=== PATIENT | female | born 1960 | race Caucasian/White ===

== ENCOUNTER 2020-03-03 11:53 | Emergency (ER) | payer BC ==
--- NOTE | 2020-03-03 12:39 | EDM.PDOC ---
ED HPI GENERAL MEDICAL PROBLEM - General Chief Complaint: Upper Extremity Injury/Pain Stated Complaint: PAIN IN L SHOULDERBLADE Time Seen by Provider: 03/03/20 12:15 Source of Information: Reports: Patient, Old Records History Limitations: Reports: No Limitations - History of Present Illness INITIAL COMMENTS - FREE TEXT/NARRATIVE: Bruna became aware of L posterior shoulder girdle pain about 2:30 am today, associated with BP 150's/70's. There was no palpititations, chest pain, SOB, cough, midline back pain, or pain radiating into the LUE. She took no meds for relief. Sxs have improved, but she felt the need for further medical evaluation in the ED. Her last medical check up was October 2019. Right Shoulder Pain Score (Numeric/FACES): 2 - Related Data Allergies Allergy/AdvReac Type Severity Reaction Status Date / Time Penicillins Allergy Hives Verified 03/03/20 12:25 Home Meds: Home Meds lisinopriL [Lisinopril] 5 mg PO DAILY 03/03/20 [History] Past Medical History HEENT History: Reports: Sinusitis, Other (See Below) Other HEENT History: allergy to environmental dusts Cardiovascular History: Reports: Hypertension Respiratory History: Reports: Pneumonia, Recurrent Gastrointestinal History: Reports: GERD, Other (See Below) Other Gastrointestinal History: "twisted bowel" Psychiatric History: Reports: None - Infectious Disease History Infectious Disease History: Reports: Chicken Pox, Measles - Past Surgical History HEENT Surgical History: Reports: LASIK Respiratory Surgical History: Reports: None Social & Family History - Family History Cardiac: Reports: [place], [place], Other (See Below) Other Cardiac Family History: uncle with cardiac history Endocrine/Metabolic: Reports: None Oncologic: Reports: Lung, Other (See Below) Other Oncologic Family History: brother of ca of lung - Caffeine Use Caffeine Use: Reports: Coffee Other Caffeine Use: 1 cup daily Review of Systems - Review of Systems Review Of Systems: Comprehensive ROS is negative, except as noted in HPI. ED EXAM, GENERAL - Physical Exam Exam: See Below Exam Limited By: No Limitations General Appearance: Alert, WD/WN, No Apparent Distress Eye Exam: Bilateral Eye: EOMI, Normal Inspection, PERRL Ears: Normal External Exam Nose: Normal Inspection Throat/Mouth: Normal Inspection, Normal Lips, Normal Oropharynx, Normal Voice, No Airway Compromise Head: Normocephalic Neck: Normal Inspection, Supple, Non-Tender Respiratory/Chest: No Respiratory Distress, Lungs Clear, Normal Breath Sounds, No Accessory Muscle Use, Chest Non-Tender Cardiovascular: Normal Peripheral Pulses, Regular Rate, Rhythm, No Edema, No Murmur GI/Abdominal: Normal Bowel Sounds, Soft, Non-Tender, No Organomegaly, No Distention, No Mass (Female) Exam: Deferred Rectal (Female) Exam: Deferred Back Exam: Normal Inspection, Other (limited tenderness of L periscapular mm, FROM; no rash) Extremities: Normal Inspection, Normal Range of Motion, Non-Tender Neurological: Alert, Oriented, CN II-XII Intact, Normal Cognition, No Motor/Sensory Deficits Psychiatric: Normal Affect Skin Exam: Warm, Dry, Intact, Normal Color, No Rash Lymphatic: No Adenopathy Course - Vital Signs Text/Narrative:: Following assessment, a screening ekg was performed, and noted NSR without acute changes. A chest x ray was neg. CBC, BMP, Troponin I and ddimer were all baseline or negative. Analgesic medication was offered, patient deferred. L upper back pain with shoulder girdle proximity. Last Recorded V/S: Last Vital Signs Temp 36.7 C 03/03/20 11:55 Pulse 73 03/03/20 11:55 Resp 15 03/03/20 11:55 BP 159/83 H 03/03/20 11:55 Pulse Ox 99 03/03/20 11:55 - Orders/Labs/Meds Orders: Active Orders 24 hr Category Date Time Status EKG Documentation Completion [RC] ASDIRECTED Care 03/03/20 12:32 Active Chest 1V Frontal [CR] Stat Exams 03/03/20 12:31 Taken CBC WITH AUTO DIFF [HEME] Stat Lab 03/03/20 12:45 Received EKG 12 Lead [EK] Routine Ther 03/03/20 12:31 Ordered Labs: Laboratory Tests 03/03/20 03/03/20 03/03/20 Range/Units 12:45 12:45 12:45 D-Dimer, Quantitative 0.37 (0.0-0.59) mg/LFEU Sodium 142 (135-145) mmol/L Potassium 3.6 (3.5-5.3) mmol/L Chloride 103 (100-110) mmol/L Carbon Dioxide 30 (21-32) mmol/L BUN 11 (7-18) mg/dL Creatinine 0.8 (0.55-1.02) mg/dL Est Cr Clr Drug Dosing 68.41 mL/min Estimated GFR (MDRD) > 60 (>60) BUN/Creatinine Ratio 13.8 (9-20) Glucose 95 (80-116) mg/dL Calcium 9.2 (8.6-10.2) mg/dL Troponin I 4.5 (4.0-60.3) pg/mL Departure - Departure Time of Disposition: 13:59 Disposition: Home, Self-Care 01 Condition: Fair Clinical Impression: Upper back pain on left side - Discharge Information *PRESCRIPTION DRUG MONITORING PROGRAM REVIEWED*: Not Applicable *COPY OF PRESCRIPTION DRUG MONITORING REPORT IN PATIENT GLENNY: Not Applicable Referrals: Sparkle Mata NP [Primary Care Provider] - Forms: ED Department Discharge Sepsis Event Note (ED) - Evaluation Sepsis Screening Result: No Definite Risk - Focused Exam Vital Signs: Vital Signs Temp Pulse Resp BP Pulse Ox 03/03/20 11:55 36.7 C 73 15 159/83 H 99 - Problem List & Annotations (1) Upper back pain on left side SNOMED Code(s): 891036560 Code(s): M54.9 - DORSALGIA, UNSPECIFIED Status: Acute Current Visit: Yes Annotation/Comment:: I suggested sxs cares, heat, massage, and ROM. - Problem List Review Problem List Initiated/Reviewed/Updated: Yes - My Orders Last 24 Hours: My Active Orders 03/03/20 12:31 Chest 1V Frontal [CR] Stat EKG 12 Lead [EK] Routine 03/03/20 12:32 EKG Documentation Completion [RC] ASDIRECTED 03/03/20 12:45 CBC WITH AUTO DIFF [HEME] Stat - Assessment/Plan Last 24 Hours: My Active Orders 03/03/20 12:31 Chest 1V Frontal [CR] Stat EKG 12 Lead [EK] Routine 03/03/20 12:32 EKG Documentation Completion [RC] ASDIRECTED 03/03/20 12:45 CBC WITH AUTO DIFF [HEME] Stat Plan: Follow up with PCP if sxs persist.
[2020-03-03 14:48] VITALS: BP 131/86; PULSE 92
== END 2020-03-03 14:30 | disposition home or self-care (01) ==
LOC: FB.ED 11:53
DX: M54.6 Pain in thoracic spine (principal); M25.512 Pain in left shoulder; I10 Essential (primary) hypertension; Z88.0 Allergy status to penicillin; Z79.899 Other long term (current) drug therapy
CPT/HCPCS: 36415; 71045; 80048; 84484; 85379; 93005; 99284-25